=== PATIENT | female | born 1960 | race Caucasian/White ===

== ENCOUNTER 2020-05-29 09:21 | Inpatient (IN) | payer BC ==
[~2020-05-29] VITALS: Ht 170.2 cm; Wt 128.3 kg
[~2020-05-29 09:21] MED LIST: [UNRECOGNIZED DRUG - OTHER]; ibuprofen; pravastatin
[2020-05-29] MEDS ORDERED: DexAMETHasone SOD PHOS 10MG/1ML VIAL INJ IV ONE (09:45)
[2020-05-29] MEDS ORDERED: ONDANSETRON HCL 4 MG/2 ML VIAL IV ONE (10:00)
[2020-05-29 10:32] LABS: Basophils # (auto) 0 10 ^3/uL (0-0.2); Basophils % (auto) 0.3 % (0.0-2.0); Eosinophils # (auto) 0 10 ^3/uL (0-0.8); Hematocrit 39.1 % (36.0-46.0); Hemoglobin 13.4 g/dL (12.2-16.2); Lymphocytes # (auto) 0.5 10 ^3/uL (0.4-5.4); Lymphocytes % (auto) 17.3 % (10.0-50.0); Mean Corpuscular Hemoglobin 31.5 pg (28.0-32.0); Mean Corpuscular Hgb Conc. 34.3 g/dL (32.0-36.0); Mean Corpuscular Volume 91.7 fL (80.0-100.0); Monocytes # (auto) 0.2 10 ^3/uL (0-1.3); Monocytes % (auto) 8.2 % (0.0-12.0); Neutrophils # (auto) 2.1 10 ^3/uL (1.6-8.6); Neutrophils % (auto) 74.2 % (37.0-80.0); Nucleated Red Blood Cells % 0.1 %; Platelet Count (auto) 161 10^3/uL (140-450); Red Blood Cells 4.26 10^6/uL (4.0-5.20); Red Cell Distribution Width 14.3 % (11.8-14.3); White Blood Cell 2.9 10^3/uL (4.4-10.8)
[2020-05-29 10:48] LABS: INR 3.95 (0.9-1.15); Partial Thromboplastin Time 54.8 sec (23.0-31.2)
[2020-05-29 10:58] LABS: Albumin 3.2 g/dL (3.4-5.0); Anion Gap 8 (5-15); Blood Urea Nitrogen 7 mg/dL (7-18); Calcium 8.1 mg/dL (8.5-10.1); Carbon Dioxide 23 mmol/L (21-32); Chloride 106 mmol/L (98-107); Glucose 106 mg/dL (74-106); Potassium 3.4 mmol/L (3.5-5.1); Sodium 137 mmol/L (136-145)
[2020-05-29 11:06] LABS: Alanine Aminotransferase 22 U/L (13-56); Alkaline Phosphatase 69 U/L (45-117); Aspartate Aminotransferase 31 U/L (15-37); BUN/Creatinine Ratio 8.1; Bilirubin, Total 0.2 mg/dL (0.2-1.0); GFR African American 87 mL/min; GFR Non-African American 72 mL/min; Total Protein 6.8 g/dL (6.4-8.2)
[2020-05-29] MEDS ORDERED: POTASSIUM CHL 20 Meq TABLET PO ONE (13:45)
[2020-05-29] MEDS ORDERED: MORPHINE SULF INJ 2 MG/ML SYRINGE 1ML IV PRN ×2 (14:00→15:15)
[2020-05-29] MEDS ORDERED: NITROGLYCERIN 0.4 MG SL TAB SL PRN ×2 (14:00→15:15)
[2020-05-29] MEDS ORDERED: PANT40TA2 PO (14:59)
[2020-05-29] MEDS ORDERED: PRAV20TA3 PO (14:59)
[2020-05-29] MEDS ORDERED: BUPR300T28 PO (14:59)
[2020-05-29] MEDS ORDERED: WARF3TAB22 PO (14:59)
[2020-05-29] MEDS ORDERED: MET25T PO (14:59)
[2020-05-29] MEDS ORDERED: REMDESIVIR PER PHARMACY 0 ML IV SCH (15:15)
[2020-05-29] MEDS ORDERED: DOCUSATE SOD 100 MG CAP PO PRN (15:15)
[2020-05-29] MEDS ORDERED: ACETAMINOPHEN 500 MG TAB PO PRN (15:15)
[2020-05-29] MEDS ORDERED: ONDANSETRON HCL 4 MG/2 ML VIAL IV PRN (15:15)
[2020-05-29] MEDS ORDERED: ALUM & MAG HYDROX-SIMETH LIQ(MAALOX) 30 ML PO PRN (15:15)
[2020-05-29] MEDS: CHOLECALCIFEROL (VITD3) 2,000 UNIT CAP PO SCH (16:31)
[2020-05-29] MEDS: BUDESONIDE (INHALATION) 180 MCG IH IN SCH (20:06)
[2020-05-29 20:51] LABS: Basophils # (auto) 0 10 ^3/uL (0-0.2); Basophils % (auto) 0.2 % (0.0-2.0); Eosinophils # (auto) 0 10 ^3/uL (0-0.8); Hematocrit 38.8 % (36.0-46.0); Hemoglobin 13.3 g/dL (12.2-16.2); Lymphocytes # (auto) 0.5 10 ^3/uL (0.4-5.4); Lymphocytes % (auto) 24.8 % (10.0-50.0); Mean Corpuscular Hemoglobin 31.5 pg (28.0-32.0); Mean Corpuscular Hgb Conc. 34.3 g/dL (32.0-36.0); Mean Corpuscular Volume 91.7 fL (80.0-100.0); Monocytes # (auto) 0.2 10 ^3/uL (0-1.3); Monocytes % (auto) 7.8 % (0.0-12.0); Neutrophils # (auto) 1.4 10 ^3/uL (1.6-8.6); Neutrophils % (auto) 67.2 % (37.0-80.0); Platelet Count (auto) 170 10^3/uL (140-450); Red Blood Cells 4.24 10^6/uL (4.0-5.20); Red Cell Distribution Width 14.2 % (11.8-14.3); White Blood Cell 2.1 10^3/uL (4.4-10.8)
[2020-05-29 22:03] LABS: Albumin 3.1 g/dL (3.4-5.0); Calcium 8.1 mg/dL (8.5-10.1); Magnesium 1.9 mg/dL (1.6-2.6); Potassium 3.4 mmol/L (3.5-5.1)
[2020-05-29 22:11] LABS: BUN/Creatinine Ratio 12.6; Bilirubin, Total 0.2 mg/dL (0.2-1.0); CRP High Sensitivity 4.36 mg/dL (< 0.3); Cholesterol 116 mg/dL (< 200); Total Protein 6.8 g/dL (6.4-8.2)
[2020-05-29 22:15] LABS: HDL Cholesterol 41 mg/dL (40-59); LDL Cholesterol 58 mg/dL (< 100); Triglycerides 88 mg/dL (< 150)
[2020-05-30] MEDS: SODIUM CHLORIDE 0.9% 1,000 ML IV SCH ×2 (05:47→11:04)
[2020-05-30] MEDS: ZINC SULFATE 220mg CAP or TAB PO SCH ×2 (05:48→11:05)
[2020-05-30] MEDS: DOXYCYCLINE 100MG/250ML 250 ML IV SCH ×3 (05:48→21:51)
[2020-05-30] MEDS: ASCORBIC ACID 1,000 MG TAB PO SCH ×2 (05:48→11:05)
[2020-05-30] MEDS ORDERED: SUCRALFATE 1 GM/10 ML ORAL SUSP PO ONE (06:30)
[2020-05-30] MEDS ORDERED: METOPROLOL SUCCINATE XL 50 MG TAB PO ONE (06:30)
[2020-05-30] MEDS ORDERED: POTASSIUM CHL 20 Meq TABLET PO ONE (06:30)
[2020-05-30] MEDS ORDERED: PANTOPRAZOLE 40 MG/10 ML VIAL INJ IV ONE (06:30)
[2020-05-30 06:54] LABS: Basophils # (auto) 0 10 ^3/uL (0-0.2); Basophils % (auto) 0.2 % (0.0-2.0); Eosinophils # (auto) 0 10 ^3/uL (0-0.8); Hematocrit 40.9 % (36.0-46.0); Hemoglobin 13.9 g/dL (12.2-16.2); Lymphocytes # (auto) 0.9 10 ^3/uL (0.4-5.4); Lymphocytes % (auto) 13.9 % (10.0-50.0); Mean Corpuscular Hgb Conc. 33.9 g/dL (32.0-36.0); Mean Corpuscular Volume 91.5 fL (80.0-100.0); Monocytes # (auto) 0.4 10 ^3/uL (0-1.3); Monocytes % (auto) 6.1 % (0.0-12.0); Neutrophils # (auto) 5.1 10 ^3/uL (1.6-8.6); Neutrophils % (auto) 79.8 % (37.0-80.0); Nucleated Red Blood Cells % 0.2 %; Platelet Count (auto) 181 10^3/uL (140-450); Red Blood Cells 4.47 10^6/uL (4.0-5.20); Red Cell Distribution Width 14.4 % (11.8-14.3); White Blood Cell 6.4 10^3/uL (4.4-10.8)
[2020-05-30 08:40] LABS: Albumin 3.2 g/dL (3.4-5.0); BUN/Creatinine Ratio 16.5; Bilirubin, Total 0.3 mg/dL (0.2-1.0); Calcium 8.6 mg/dL (8.5-10.1); Potassium 3.7 mmol/L (3.5-5.1); Total Protein 6.7 g/dL (6.4-8.2)
[2020-05-30 09:39] LABS: INR 5.76 (0.9-1.15)
[2020-05-30] MEDS: buPROPion HCL 75 MG TAB PO SCH ×2 (09:42→19:44)
[2020-05-30] MEDS: PANTOPRAZOLE 40 MG/10 ML VIAL INJ IV SCH (10:00)
[2020-05-30] MEDS: METOPROLOL SUCCINATE XL 50 MG TAB PO SCH (10:00)
[2020-05-30] MEDS: POTASSIUM CHL 20 Meq TABLET PO SCH (10:00)
[2020-05-30] MEDS: SUCRALFATE 1 GM/10 ML ORAL SUSP PO SCH ×4 (10:00→21:51)
[2020-05-30] MEDS: DexAMETHasone SOD PHOS 10MG/1ML VIAL INJ IV SCH (11:05)
[2020-05-30] MEDS: CHOLECALCIFEROL (VITD3) 2,000 UNIT CAP PO SCH (11:06)
[2020-05-30] MEDS ORDERED: REMDESIVIR 200 MG in NS 210ml LOADING DOSE ADULT IV ONE (17:00)
[2020-05-30 18:00] VITALS: BP 117/74
[2020-05-30 18:30] VITALS: BP 116/56
[2020-05-30 18:42] LABS: Urine Bacteria NONE SEEN /hpf (None Seen); Urine Blood Negative /uL (Negative); Urine Hyaline Cast FEW /lpf (0 - 2); Urine Specific Gravity 1.009 (1.001-1.035); Urine WBC 1 /hpf (0 - 5)
[2020-05-30 18:52] LABS: Amphetamine Screen, Urine NEGATIVE (NEGATIVE); Barbiturate Scree,Urine NEGATIVE (NEGATIVE); Benzodiazephine Screen, Urine NEGATIVE (NEGATIVE); Cannabinoid Screen, Urine NEGATIVE (NEGATIVE); Cocaine Screen, Urine NEGATIVE (NEGATIVE); Opiate Scree,Urine NEGATIVE (NEGATIVE); Phencyclidine Screen, Urine NEGATIVE (NEGATIVE)
[2020-05-30] MEDS: BUDESONIDE (INHALATION) 180 MCG IH IN SCH (20:21)
[2020-05-30] MEDS: ALBUTEROL SULF HFA 90MCG INH 200DOSE IN PRN (20:21)
[2020-05-30] MEDS: ATORVASTATIN 20 MG TAB PO SCH (21:51)
[2020-05-30] MEDS ORDERED: DOXY-286 PO (22:18)
[2020-05-30] MEDS ORDERED: SERT-377 PO (22:18)
[2020-05-30] MEDS: MORPHINE SULF INJ 2 MG/ML SYRINGE 1ML IV PRN (23:05)
[2020-05-31] MEDS: SODIUM CHLORIDE 0.9% 1,000 ML IV SCH (00:44)
[2020-05-31] MEDS: SUCRALFATE 1 GM/10 ML ORAL SUSP PO SCH ×4 (06:23→21:30)
[2020-05-31] MEDS: MORPHINE SULF INJ 2 MG/ML SYRINGE 1ML IV PRN (06:24)
[2020-05-31] MEDS: buPROPion HCL 75 MG TAB PO SCH ×2 (06:37→18:21)
[2020-05-31 07:49] VITALS: BP 123/73
[2020-05-31] MEDS: DOXYCYCLINE 100MG/250ML 250 ML IV SCH ×2 (08:55→21:30)
[2020-05-31] MEDS: PANTOPRAZOLE 40 MG/10 ML VIAL INJ IV SCH (08:55)
[2020-05-31] MEDS: DexAMETHasone SOD PHOS 10MG/1ML VIAL INJ IV SCH (08:55)
[2020-05-31] MEDS: ZINC SULFATE 220mg CAP or TAB PO SCH (08:56)
[2020-05-31] MEDS: ASCORBIC ACID 1,000 MG TAB PO SCH (08:56)
[2020-05-31] MEDS: METOPROLOL SUCCINATE XL 50 MG TAB PO SCH (08:56)
[2020-05-31] MEDS: POTASSIUM CHL 20 Meq TABLET PO SCH (08:56)
[2020-05-31] MEDS: CHOLECALCIFEROL (VITD3) 2,000 UNIT CAP PO SCH (08:57)
[2020-05-31] MEDS: BUDESONIDE (INHALATION) 180 MCG IH IN SCH ×2 (10:00→21:07)
[2020-05-31 11:52] LABS: INR > 8.0 (0.9-1.15)
[2020-05-31] MEDS ORDERED: FUROSEMIDE 20 MG/2 ML VIAL IV ONE (13:45)
[2020-05-31] MEDS: REMDESIVIR 100 MG in SODIUM CHL 0.9% 250 ML IV SCH (15:15)
[2020-05-31 16:00] VITALS: BP 125/69
[2020-05-31] MEDS: ALBUTEROL SULF HFA 90MCG INH 200DOSE IN PRN (21:07)
[2020-05-31] MEDS: ATORVASTATIN 20 MG TAB PO SCH (21:31)
[2020-05-31] MEDS: HYDROcodone-ACET 5/325MG TAB PO PRN (21:40)
[2020-06-01] VITALS: BP 108/62
[2020-06-01] MEDS: buPROPion HCL 75 MG TAB PO SCH ×2 (06:05→18:31)
[2020-06-01] MEDS: SUCRALFATE 1 GM/10 ML ORAL SUSP PO SCH ×4 (06:05→22:04)
[2020-06-01] MEDS: HYDROcodone-ACET 5/325MG TAB PO PRN ×2 (06:13→18:43)
[2020-06-01 08:00] VITALS: BP 107/53
[2020-06-01] MEDS: DexAMETHasone SOD PHOS 10MG/1ML VIAL INJ IV SCH (09:29)
[2020-06-01] MEDS: FUROSEMIDE 20 MG/2 ML VIAL IV SCH (09:30)
[2020-06-01] MEDS: PANTOPRAZOLE 40 MG/10 ML VIAL INJ IV SCH (09:30)
[2020-06-01] MEDS: DOXYCYCLINE 100MG/250ML 250 ML IV SCH ×2 (09:30→22:04)
[2020-06-01] MEDS: ZINC SULFATE 220mg CAP or TAB PO SCH (09:31)
[2020-06-01] MEDS: ASCORBIC ACID 1,000 MG TAB PO SCH (09:31)
[2020-06-01] MEDS: METOPROLOL SUCCINATE XL 50 MG TAB PO SCH (09:31)
[2020-06-01] MEDS: POTASSIUM CHL 20 Meq TABLET PO SCH (09:31)
[2020-06-01] MEDS: CHOLECALCIFEROL (VITD3) 2,000 UNIT CAP PO SCH (09:32)
[2020-06-01] MEDS: BUDESONIDE (INHALATION) 180 MCG IH IN SCH ×2 (10:10→21:30)
[2020-06-01] MEDS: ALBUTEROL SULF HFA 90MCG INH 200DOSE IN PRN ×2 (10:10→21:30)
[2020-06-01 11:55] LABS: Basophils # (auto) 0 10 ^3/uL (0-0.2); Basophils % (auto) 0.2 % (0.0-2.0); Eosinophils # (auto) 0 10 ^3/uL (0-0.8); Hematocrit 39.1 % (36.0-46.0); Hemoglobin 13.2 g/dL (12.2-16.2); Lymphocytes # (auto) 0.5 10 ^3/uL (0.4-5.4); Lymphocytes % (auto) 11.3 % (10.0-50.0); Mean Corpuscular Hgb Conc. 33.8 g/dL (32.0-36.0); Mean Corpuscular Volume 91.9 fL (80.0-100.0); Monocytes # (auto) 0.4 10 ^3/uL (0-1.3); Monocytes % (auto) 7.8 % (0.0-12.0); Neutrophils # (auto) 3.7 10 ^3/uL (1.6-8.6); Neutrophils % (auto) 80.7 % (37.0-80.0); Platelet Count (auto) 196 10^3/uL (140-450); Red Blood Cells 4.26 10^6/uL (4.0-5.20); Red Cell Distribution Width 14.4 % (11.8-14.3); White Blood Cell 4.5 10^3/uL (4.4-10.8)
[2020-06-01 12:05] LABS: Potassium 3.2 mmol/L (3.5-5.1)
[2020-06-01 12:15] LABS: BUN/Creatinine Ratio 16.1; Bilirubin, Total 0.3 mg/dL (0.2-1.0); CRP High Sensitivity 4.58 mg/dL (< 0.3); Total Protein 6.5 g/dL (6.4-8.2)
[2020-06-01 12:48] LABS: INR 5.84 (0.9-1.15)
[2020-06-01] MEDS ORDERED: POTASSIUM CHL 20 Meq TABLET PO ONE (13:15)
[2020-06-01] MEDS: REMDESIVIR 100 MG in SODIUM CHL 0.9% 250 ML IV SCH (15:00)
[2020-06-01 16:00] VITALS: BP 114/71
[2020-06-01] MEDS: ATORVASTATIN 20 MG TAB PO SCH (22:04)
[2020-06-01] MEDS: LORazepam 0.5 MG TAB PO PRN (22:05)
[2020-06-02] VITALS: BP 149/75
[2020-06-02] MEDS: buPROPion HCL 75 MG TAB PO SCH ×2 (06:30→19:39)
[2020-06-02] MEDS: SUCRALFATE 1 GM/10 ML ORAL SUSP PO SCH ×4 (06:30→22:01)
[2020-06-02 07:32] LABS: Basophils # (auto) 0 10 ^3/uL (0-0.2); Basophils % (auto) 0.4 % (0.0-2.0); Eosinophils # (auto) 0 10 ^3/uL (0-0.8); Eosinophils % (auto) 0.1 % (0.0-7.0); Hematocrit 37.4 % (36.0-46.0); Hemoglobin 12.7 g/dL (12.2-16.2); Lymphocytes % (auto) 29.5 % (10.0-50.0); Mean Corpuscular Hemoglobin 30.9 pg (28.0-32.0); Mean Corpuscular Hgb Conc. 33.9 g/dL (32.0-36.0); Mean Corpuscular Volume 91.4 fL (80.0-100.0); Monocytes # (auto) 0.4 10 ^3/uL (0-1.3); Monocytes % (auto) 10.9 % (0.0-12.0); Neutrophils % (auto) 59.1 % (37.0-80.0); Nucleated Red Blood Cells % 0.1 %; Platelet Count (auto) 193 10^3/uL (140-450); Red Blood Cells 4.09 10^6/uL (4.0-5.20); White Blood Cell 3.3 10^3/uL (4.4-10.8)
[2020-06-02 07:53] LABS: Albumin 3.1 g/dL (3.4-5.0); BUN/Creatinine Ratio 19.4; Calcium 8.2 mg/dL (8.5-10.1); Potassium 3.1 mmol/L (3.5-5.1)
[2020-06-02 08:00] VITALS: BP 123/63
[2020-06-02 08:04] LABS: Partial Thromboplastin Time 59.1 sec (23.0-31.2)
[2020-06-02 08:05] LABS: Bilirubin, Total 0.4 mg/dL (0.2-1.0); Total Protein 6.1 g/dL (6.4-8.2)
[2020-06-02 08:12] LABS: INR 5.12 (0.9-1.15)
[2020-06-02] MEDS ORDERED: POTASSIUM CHL 20 Meq TABLET PO ONE (09:00)
[2020-06-02] MEDS: DexAMETHasone SOD PHOS 10MG/1ML VIAL INJ IV SCH (09:49)
[2020-06-02] MEDS: FUROSEMIDE 20 MG/2 ML VIAL IV SCH (09:49)
[2020-06-02] MEDS: MAGNESIUM OXIDE 400 MG TAB PO SCH (09:50)
[2020-06-02] MEDS: POTASSIUM CHL 20 Meq TABLET PO SCH (09:50)
[2020-06-02] MEDS: DOXYCYCLINE 100MG/250ML 250 ML IV SCH ×2 (09:50→22:01)
[2020-06-02] MEDS: ZINC SULFATE 220mg CAP or TAB PO SCH (09:50)
[2020-06-02] MEDS: CHOLECALCIFEROL (VITD3) 2,000 UNIT CAP PO SCH (09:51)
[2020-06-02] MEDS: ASCORBIC ACID 1,000 MG TAB PO SCH (09:51)
[2020-06-02] MEDS: METOPROLOL SUCCINATE XL 50 MG TAB PO SCH (09:51)
[2020-06-02] MEDS: PANTOPRAZOLE 40 MG/10 ML VIAL INJ IV SCH (10:00)
[2020-06-02] MEDS: BUDESONIDE (INHALATION) 180 MCG IH IN SCH ×2 (10:00→21:05)
[2020-06-02] MEDS: ALBUTEROL SULF HFA 90MCG INH 200DOSE IN PRN ×2 (10:55→21:05)
[2020-06-02] MEDS: guaiFENesin-DM 100/10mg/5ml SYR PO PRN ×2 (13:22→22:50)
[2020-06-02] MEDS: REMDESIVIR 100 MG in SODIUM CHL 0.9% 250 ML IV SCH (15:51)
[2020-06-02] MEDS: HYDROcodone-ACET 5/325MG TAB PO PRN ×2 (15:55→22:02)
[2020-06-02 16:00] VITALS: BP 109/65
[2020-06-02 20:00] VITALS: BP 101/47
[2020-06-02] MEDS: ATORVASTATIN 20 MG TAB PO SCH (22:01)
[2020-06-02] MEDS: LORazepam 0.5 MG TAB PO PRN (22:02)
[2020-06-03] VITALS: BP 95/61
[2020-06-03] MEDS: buPROPion HCL 75 MG TAB PO SCH ×2 (06:38→19:33)
[2020-06-03] MEDS: SUCRALFATE 1 GM/10 ML ORAL SUSP PO SCH ×4 (06:38→22:20)
[2020-06-03] MEDS: guaiFENesin-DM 100/10mg/5ml SYR PO PRN ×2 (06:45→22:20)
[2020-06-03 07:23] LABS: INR 5.78 (0.9-1.15)
[2020-06-03 08:00] VITALS: BP 122/59
[2020-06-03] MEDS: PANTOPRAZOLE 40 MG/10 ML VIAL INJ IV SCH (10:00)
[2020-06-03] MEDS: BUDESONIDE (INHALATION) 180 MCG IH IN SCH ×2 (10:00→20:17)
[2020-06-03] MEDS: DexAMETHasone SOD PHOS 10MG/1ML VIAL INJ IV SCH (10:04)
[2020-06-03] MEDS: DOXYCYCLINE 100MG/250ML 250 ML IV SCH (10:05)
[2020-06-03] MEDS: FUROSEMIDE 20 MG/2 ML VIAL IV SCH (10:05)
[2020-06-03] MEDS: MAGNESIUM OXIDE 400 MG TAB PO SCH (10:06)
[2020-06-03] MEDS: POTASSIUM CHL 20 Meq TABLET PO SCH (10:06)
[2020-06-03] MEDS: ZINC SULFATE 220mg CAP or TAB PO SCH (10:06)
[2020-06-03] MEDS: METOPROLOL SUCCINATE XL 50 MG TAB PO SCH (10:07)
[2020-06-03] MEDS: ASCORBIC ACID 1,000 MG TAB PO SCH (10:07)
[2020-06-03] MEDS: CHOLECALCIFEROL (VITD3) 2,000 UNIT CAP PO SCH (10:07)
[2020-06-03] MEDS: HYDROcodone-ACET 5/325MG TAB PO PRN ×2 (11:40→18:55)
[2020-06-03 15:57] VITALS: BP 107/63
[2020-06-03] MEDS: REMDESIVIR 100 MG in SODIUM CHL 0.9% 250 ML IV SCH (18:44)
[2020-06-03 20:00] VITALS: BP 112/61
[2020-06-03] MEDS: ALBUTEROL SULF HFA 90MCG INH 200DOSE IN PRN (20:17)
[2020-06-03] MEDS: ATORVASTATIN 20 MG TAB PO SCH (22:20)
[2020-06-03] MEDS: LORazepam 0.5 MG TAB PO PRN (22:20)
[2020-06-04] VITALS: BP 105/66
[2020-06-04] MEDS: buPROPion HCL 75 MG TAB PO SCH ×2 (06:47→18:23)
[2020-06-04] MEDS: SUCRALFATE 1 GM/10 ML ORAL SUSP PO SCH ×4 (06:47→21:46)
[2020-06-04] MEDS: ALBUTEROL SULF HFA 90MCG INH 200DOSE IN PRN ×2 (06:54→20:27)
[2020-06-04] MEDS: BUDESONIDE (INHALATION) 180 MCG IH IN SCH ×2 (06:54→19:06)
[2020-06-04 07:53] LABS: Basophils # (auto) 0 10 ^3/uL (0-0.2); Basophils % (auto) 0.2 % (0.0-2.0); Eosinophils # (auto) 0 10 ^3/uL (0-0.8); Eosinophils % (auto) 0.1 % (0.0-7.0); Hematocrit 39.9 % (36.0-46.0); Hemoglobin 13.3 g/dL (12.2-16.2); Lymphocytes # (auto) 1.1 10 ^3/uL (0.4-5.4); Lymphocytes % (auto) 21.5 % (10.0-50.0); Mean Corpuscular Hemoglobin 30.3 pg (28.0-32.0); Mean Corpuscular Hgb Conc. 33.3 g/dL (32.0-36.0); Monocytes # (auto) 0.6 10 ^3/uL (0-1.3); Monocytes % (auto) 11.1 % (0.0-12.0); Neutrophils # (auto) 3.4 10 ^3/uL (1.6-8.6); Neutrophils % (auto) 67.1 % (37.0-80.0); Nucleated Red Blood Cells % 0.1 %; Platelet Count (auto) 255 10^3/uL (140-450); Red Blood Cells 4.39 10^6/uL (4.0-5.20); Red Cell Distribution Width 14.3 % (11.8-14.3); White Blood Cell 5.1 10^3/uL (4.4-10.8)
[2020-06-04 08:00] VITALS: BP 142/70
[2020-06-04 08:09] LABS: Potassium 3.3 mmol/L (3.5-5.1)
[2020-06-04] MEDS: ASCORBIC ACID 1,000 MG TAB PO SCH (08:42)
[2020-06-04] MEDS: MAGNESIUM OXIDE 400 MG TAB PO SCH (08:42)
[2020-06-04] MEDS: ZINC SULFATE 220mg CAP or TAB PO SCH (08:43)
[2020-06-04] MEDS: DexAMETHasone SOD PHOS 10MG/1ML VIAL INJ IV SCH (08:44)
[2020-06-04] MEDS: FUROSEMIDE 20 MG/2 ML VIAL IV SCH (08:44)
[2020-06-04] MEDS: METOPROLOL SUCCINATE XL 50 MG TAB PO SCH (08:44)
[2020-06-04 08:50] LABS: BUN/Creatinine Ratio 16.4; Calcium 8.6 mg/dL (8.5-10.1)
[2020-06-04 08:59] LABS: CRP High Sensitivity 2.91 mg/dL (< 0.3)
[2020-06-04 09:02] LABS: INR 4.7 (0.9-1.15)
[2020-06-04] MEDS: PANTOPRAZOLE 40 MG/10 ML VIAL INJ IV SCH (10:00)
[2020-06-04] MEDS: CHOLECALCIFEROL (VITD3) 2,000 UNIT CAP PO SCH (10:00)
[2020-06-04] MEDS ORDERED: POTASSIUM CHL 20 Meq TABLET PO ONE (14:30)
[2020-06-04] MEDS: guaiFENesin-DM 100/10mg/5ml SYR PO PRN ×2 (15:13→21:47)
[2020-06-04] MEDS: HYDROcodone-ACET 5/325MG TAB PO PRN (15:14)
[2020-06-04 16:00] VITALS: BP_SYST 100; BP_SYST 106; BP_SYST 143; BP_DIAS 60; BP_DIAS 65; BP_DIAS 72
[2020-06-04] MEDS: ATORVASTATIN 20 MG TAB PO SCH (21:46)
[2020-06-04] MEDS: LORazepam 0.5 MG TAB PO PRN (21:47)
[2020-06-05] VITALS: BP 106/53
[2020-06-05] MEDS: ALBUTEROL SULF HFA 90MCG INH 200DOSE IN PRN (06:40)
[2020-06-05] MEDS: BUDESONIDE (INHALATION) 180 MCG IH IN SCH (06:40)
[2020-06-05] MEDS: buPROPion HCL 75 MG TAB PO SCH (06:43)
[2020-06-05] MEDS: SUCRALFATE 1 GM/10 ML ORAL SUSP PO SCH ×2 (06:43→10:09)
[2020-06-05] MEDS: HYDROcodone-ACET 5/325MG TAB PO PRN (06:44)
[2020-06-05 08:00] VITALS: BP 119/70
[2020-06-05 08:20] LABS: Basophils # (auto) 0 10 ^3/uL (0-0.2); Basophils % (auto) 0.3 % (0.0-2.0); Eosinophils # (auto) 0 10 ^3/uL (0-0.8); Eosinophils % (auto) 0.5 % (0.0-7.0); Hematocrit 38.9 % (36.0-46.0); Hemoglobin 13.4 g/dL (12.2-16.2); Lymphocytes # (auto) 1.1 10 ^3/uL (0.4-5.4); Lymphocytes % (auto) 17.2 % (10.0-50.0); Mean Corpuscular Hemoglobin 30.8 pg (28.0-32.0); Mean Corpuscular Hgb Conc. 34.3 g/dL (32.0-36.0); Mean Corpuscular Volume 89.8 fL (80.0-100.0); Monocytes # (auto) 0.7 10 ^3/uL (0-1.3); Monocytes % (auto) 11.3 % (0.0-12.0); Neutrophils # (auto) 4.4 10 ^3/uL (1.6-8.6); Neutrophils % (auto) 70.7 % (37.0-80.0); Platelet Count (auto) 262 10^3/uL (140-450); Red Blood Cells 4.33 10^6/uL (4.0-5.20); Red Cell Distribution Width 13.9 % (11.8-14.3); White Blood Cell 6.2 10^3/uL (4.4-10.8)
[2020-06-05 08:34] LABS: INR 3.04 (0.9-1.15)
[2020-06-05 08:37] LABS: Albumin 2.8 g/dL (3.4-5.0)
[2020-06-05] MEDS: PANTOPRAZOLE 40 MG/10 ML VIAL INJ IV SCH (10:00)
[2020-06-05] MEDS: ASCORBIC ACID 1,000 MG TAB PO SCH (10:09)
[2020-06-05] MEDS: METOPROLOL SUCCINATE XL 50 MG TAB PO SCH (10:10)
[2020-06-05] MEDS: CHOLECALCIFEROL (VITD3) 2,000 UNIT CAP PO SCH (10:10)
[2020-06-05] MEDS: ZINC SULFATE 220mg CAP or TAB PO SCH (10:10)
[2020-06-05] MEDS: FUROSEMIDE 20 MG/2 ML VIAL IV SCH (10:11)
[2020-06-05] MEDS: DexAMETHasone SOD PHOS 10MG/1ML VIAL INJ IV SCH (10:11)
[2020-06-05] MEDS: MAGNESIUM OXIDE 400 MG TAB PO SCH (10:11)
[2020-06-05 15:42] VITALS: BP 96/56
[2020-06-05 18:17] VITALS: BP 119/57
== END 2020-06-05 19:59 | disposition home health service (06) | DRG 177 ==
LOC: EDSEX 09:21 → ER 09:21 → EDBD 09:21 → TELE 09:22 → TELE-EAST 05-30 17:02
PROVIDERS: ADMIT Hospitalist; ATTEND Internal Medicine
PROC: XW033E5 Introduction of Remdesivir Anti-infective into Peripheral Vein, Percutaneous Approach, New Technology Group 5 (ICD-10-PCS; principal; 2020-05-30)
DX: U07.1 COVID-19 (principal); J12.82 Pneumonia due to coronavirus disease 2019; J96.01 Acute respiratory failure with hypoxia; D68.51 Activated protein C resistance; Z68.41 Body mass index [BMI] 40.0-44.9, adult; E66.01 Morbid (severe) obesity due to excess calories; E78.5 Hyperlipidemia, unspecified; F32.9 Major depressive disorder, single episode, unspecified; I25.10 Atherosclerotic heart disease of native coronary artery without angina pectoris; I25.2 Old myocardial infarction; I25.5 Ischemic cardiomyopathy; I50.9 Heart failure, unspecified; K21.9 Gastro-esophageal reflux disease without esophagitis; K29.70 Gastritis, unspecified, without bleeding; Z79.01 Long term (current) use of anticoagulants; Z86.73 Personal history of transient ischemic attack (TIA), and cerebral infarction without residual deficits; Z90.710 Acquired absence of both cervix and uterus
CPT/HCPCS: 36415; 36600; 71045; 80048; 80053; 80061; 80307; 81001; 82040; 82306; 82565; 82728; 82805; 83036; 83605; 83615; 83735; 83880; 84439; 84443; 84484; 85025; 85379; 85610; 85730; 86141; 87040; 87086; 87426; 87804; 94640; 96374; 96375; 97163; C9113; G0378; J1100; J2405; J3490

== ENCOUNTER 2020-07-03 16:52 | Inpatient (IN) | payer BC ==
[~2020-07-03] VITALS: Ht 170.2 cm; Wt 125.6 kg
[~2020-07-03 16:52] MED LIST changes: +BUPR300T28 PO; +DOXY-286 PO; +MET25T PO; +PANT40TA2 PO; +PRAV20TA3 PO; +SERT-377 PO; +WARF3TAB22 PO; -[UNRECOGNIZED DRUG - OTHER]; -ibuprofen; -pravastatin
[2020-07-03 18:36] LABS: Basophils # (auto) 0.1 10 ^3/uL (0-0.2); Basophils % (auto) 0.9 % (0.0-2.0); Eosinophils # (auto) 0.4 10 ^3/uL (0-0.8); Eosinophils % (auto) 3.7 % (0.0-7.0); Hematocrit 41.3 % (36.0-46.0); Lymphocytes # (auto) 2.6 10 ^3/uL (0.4-5.4); Lymphocytes % (auto) 24.7 % (10.0-50.0); Mean Corpuscular Hemoglobin 31.7 pg (28.0-32.0); Mean Corpuscular Volume 93.3 fL (80.0-100.0); Monocytes # (auto) 0.8 10 ^3/uL (0-1.3); Monocytes % (auto) 7.6 % (0.0-12.0); Neutrophils # (auto) 6.5 10 ^3/uL (1.6-8.6); Neutrophils % (auto) 63.1 % (37.0-80.0); Platelet Count (auto) 256 10^3/uL (140-450); Red Blood Cells 4.43 10^6/uL (4.0-5.20); Red Cell Distribution Width 15.5 % (11.8-14.3); White Blood Cell 10.3 10^3/uL (4.4-10.8)
[2020-07-03 18:56] LABS: Alanine Aminotransferase 26 U/L (13-56); Albumin 3.4 g/dL (3.4-5.0); Anion Gap 9 (5-15); Aspartate Aminotransferase 19 U/L (15-37); BUN/Creatinine Ratio 14.3; Blood Urea Nitrogen 12 mg/dL (7-18); Calcium 8.6 mg/dL (8.5-10.1); Carbon Dioxide 23 mmol/L (21-32); Chloride 105 mmol/L (98-107); GFR African American 89 mL/min; GFR Non-African American 74 mL/min; Glucose 99 mg/dL (74-106); Magnesium 2.1 mg/dL (1.6-2.6); Potassium 3.9 mmol/L (3.5-5.1); Sodium 137 mmol/L (136-145)
[2020-07-03 18:58] LABS: INR 2.05 (0.9-1.15); Partial Thromboplastin Time 34.7 sec (23.0-31.2)
[2020-07-03 18:58] LABS: Lactic Acid w/Reflex 2.1 mmol/L (0.4-2.0)
[2020-07-03 19:01] LABS: Alkaline Phosphatase 71 U/L (45-117); Bilirubin, Total 0.3 mg/dL (0.2-1.0); Total Protein 6.8 g/dL (6.4-8.2)
[2020-07-03] MEDS ORDERED: SODIUM CHLORIDE 0.9% 1,000 ML IV ONE (19:45)
[2020-07-03] MEDS ORDERED: DexAMETHasone SOD PHOS 10MG/1ML VIAL INJ IV ONE (19:45)
[2020-07-03] MEDS ORDERED: DOXYCYCLINE 100MG/250ML 250 ML IV ONE (19:45)
[2020-07-03] MEDS ORDERED: ALBUTEROL SULF HFA 90MCG INH 200DOSE IN PRN (22:30)
[2020-07-03] MEDS ORDERED: ONDANSETRON HCL 4 MG/2 ML VIAL IV PRN (22:30)
[2020-07-03] MEDS ORDERED: TEMAZEPAM 15 MG CAP PO PRN (22:30)
[2020-07-03] MEDS ORDERED: NITROGLYCERIN 0.4 MG SL TAB SL PRN (22:30)
[2020-07-03] MEDS ORDERED: MORPHINE SULF INJ 2 MG/ML SYRINGE 1ML IV PRN (22:30)
[2020-07-03 22:36] LABS: Urine Bacteria NONE SEEN /hpf (None Seen); Urine Blood Negative /uL (Negative); Urine Specific Gravity 1.009 (1.001-1.035); Urine WBC 10 /hpf (0 - 5)
[2020-07-03 23:26] LABS: Magnesium 2.2 mg/dL (1.6-2.6)
[2020-07-03 23:35] LABS: CRP High Sensitivity 1.85 mg/dL (< 0.3)
[2020-07-04] MEDS: ACETAMINOPHEN 325 MG TAB PO PRN ×3 (04:54→18:45)
[2020-07-04 05:00] VITALS: BP 114/63
[2020-07-04] MEDS: buPROPion HCL 75 MG TAB PO SCH ×2 (06:23→18:37)
[2020-07-04 08:00] VITALS: BP 138/78
[2020-07-04 09:07] LABS: Basophils # (auto) 0 10 ^3/uL (0-0.2); Basophils % (auto) 0.2 % (0.0-2.0); Eosinophils # (auto) 0 10 ^3/uL (0-0.8); Hematocrit 39.4 % (36.0-46.0); Hemoglobin 13.4 g/dL (12.2-16.2); Lymphocytes # (auto) 1.2 10 ^3/uL (0.4-5.4); Lymphocytes % (auto) 12.5 % (10.0-50.0); Mean Corpuscular Hemoglobin 31.5 pg (28.0-32.0); Mean Corpuscular Volume 92.7 fL (80.0-100.0); Monocytes # (auto) 0.2 10 ^3/uL (0-1.3); Neutrophils % (auto) 85.3 % (37.0-80.0); Platelet Count (auto) 237 10^3/uL (140-450); Red Blood Cells 4.25 10^6/uL (4.0-5.20); Red Cell Distribution Width 15.5 % (11.8-14.3); White Blood Cell 9.3 10^3/uL (4.4-10.8)
[2020-07-04 09:27] LABS: Albumin 3.1 g/dL (3.4-5.0); Anion Gap 6 (5-15); Blood Urea Nitrogen 15 mg/dL (7-18); Calcium 8.8 mg/dL (8.5-10.1); Carbon Dioxide 24 mmol/L (21-32); Chloride 108 mmol/L (98-107); GFR African American 95 mL/min; GFR Non-African American 79 mL/min; Glucose 124 mg/dL (74-106); Sodium 138 mmol/L (136-145)
[2020-07-04 09:35] LABS: Alanine Aminotransferase 23 U/L (13-56); Alkaline Phosphatase 65 U/L (45-117); Aspartate Aminotransferase 12 U/L (15-37); Bilirubin, Total 0.3 mg/dL (0.2-1.0); Total Protein 6.3 g/dL (6.4-8.2)
[2020-07-04] MEDS: ASCORBIC ACID 1,000 MG TAB PO SCH (10:00)
[2020-07-04] MEDS: ZINC SULFATE 220mg CAP or TAB PO SCH (10:00)
[2020-07-04] MEDS: CHOLECALCIFEROL (VITD3) 2,000 UNIT CAP/TAB PO SCH (10:00)
[2020-07-04] MEDS: ENOXAPARIN SOD 40 MG/0.4 ML SYRINGE SC SCH ×2 (10:00→22:00)
[2020-07-04] MEDS: DOXYCYCLINE 100MG/250ML 250 ML IV SCH ×2 (10:28→22:03)
[2020-07-04] MEDS: FAMOTIDINE 20 MG TAB PO SCH ×2 (10:28→22:03)
[2020-07-04] MEDS: METOPROLOL SUCCINATE XL 50 MG TAB PO SCH (10:29)
[2020-07-04] MEDS: SERTRALINE HCL 50 MG TAB PO SCH (10:29)
[2020-07-04] MEDS ORDERED: ADENOSINE 106 MG in GIVE UN-DILUTED 0 ML IV STA (13:28)
[2020-07-04 13:52] VITALS: BP 129/69
[2020-07-04 16:00] VITALS: BP 125/65
[2020-07-04 16:45] LABS: INR 2.01 (0.9-1.15)
[2020-07-04] MEDS ORDERED: WARFARIN SODIUM 1 MG TAB PO ONE (18:00)
[2020-07-04 22:00] VITALS: BP 108/63
[2020-07-04] MEDS ORDERED: PRAVASTATIN SODIUM 20 MG TAB PO SCH (22:00)
[2020-07-05] MEDS: ACETAMINOPHEN 325 MG TAB PO PRN (00:40)
[2020-07-05 05:00] VITALS: BP 131/78
[2020-07-05 06:27] LABS: Basophils # (auto) 0 10 ^3/uL (0-0.2); Basophils % (auto) 0.5 % (0.0-2.0); Eosinophils # (auto) 0.1 10 ^3/uL (0-0.8); Eosinophils % (auto) 1.6 % (0.0-7.0); Hematocrit 36.5 % (36.0-46.0); Hemoglobin 12.5 g/dL (12.2-16.2); Lymphocytes # (auto) 2.7 10 ^3/uL (0.4-5.4); Lymphocytes % (auto) 32.8 % (10.0-50.0); Mean Corpuscular Hemoglobin 31.7 pg (28.0-32.0); Mean Corpuscular Hgb Conc. 34.3 g/dL (32.0-36.0); Mean Corpuscular Volume 92.4 fL (80.0-100.0); Monocytes # (auto) 0.6 10 ^3/uL (0-1.3); Monocytes % (auto) 7.3 % (0.0-12.0); Neutrophils # (auto) 4.8 10 ^3/uL (1.6-8.6); Neutrophils % (auto) 57.8 % (37.0-80.0); Nucleated Red Blood Cells % 0.2 %; Platelet Count (auto) 220 10^3/uL (140-450); Red Blood Cells 3.95 10^6/uL (4.0-5.20); Red Cell Distribution Width 15.7 % (11.8-14.3); White Blood Cell 8.3 10^3/uL (4.4-10.8)
[2020-07-05 06:36] LABS: Albumin 2.9 g/dL (3.4-5.0); Calcium 8.2 mg/dL (8.5-10.1); Potassium 3.7 mmol/L (3.5-5.1)
[2020-07-05 06:37] LABS: INR 2.1 (0.9-1.15)
[2020-07-05] MEDS: buPROPion HCL 75 MG TAB PO SCH (06:38)
[2020-07-05 06:41] LABS: BUN/Creatinine Ratio 15.9; Bilirubin, Total 0.3 mg/dL (0.2-1.0); Total Protein 5.8 g/dL (6.4-8.2)
[2020-07-05 08:00] VITALS: BP 116/68
[2020-07-05] MEDS: ZINC SULFATE 220mg CAP or TAB PO SCH (09:01)
[2020-07-05] MEDS: ASCORBIC ACID 1,000 MG TAB PO SCH (09:26)
[2020-07-05] MEDS: CHOLECALCIFEROL (VITD3) 2,000 UNIT CAP/TAB PO SCH (09:26)
[2020-07-05] MEDS: ENOXAPARIN SOD 40 MG/0.4 ML SYRINGE SC SCH (09:27)
[2020-07-05] MEDS: FAMOTIDINE 20 MG TAB PO SCH (10:00)
[2020-07-05] MEDS: SERTRALINE HCL 50 MG TAB PO SCH (10:00)
[2020-07-05] MEDS: DOXYCYCLINE 100MG/250ML 250 ML IV SCH (10:00)
[2020-07-05] MEDS: METOPROLOL SUCCINATE XL 50 MG TAB PO SCH (10:46)
[2020-07-05 14:27] VITALS: BP 126/57
[2020-07-05 15:51] VITALS: BP 126/57
[2020-07-05] MEDS ORDERED: WARFARIN SODIUM 1 MG TAB PO ONE (17:00)
== END 2020-07-05 15:44 | disposition home or self-care (01) | DRG 194 ==
LOC: ER 16:52 → TELE 22:34 → TELE-CENTR 07-04 04:20
PROVIDERS: ADMIT Nurse Practitioner; ATTEND Family Medicine
DX: J18.9 Pneumonia, unspecified organism (principal); D68.51 Activated protein C resistance; D84.9 Immunodeficiency, unspecified; Z68.41 Body mass index [BMI] 40.0-44.9, adult; I20.0 Unstable angina; D68.9 Coagulation defect, unspecified; R07.89 Other chest pain; E66.01 Morbid (severe) obesity due to excess calories; Z20.822 Contact with and (suspected) exposure to COVID-19; R06.03 Acute respiratory distress; I10 Essential (primary) hypertension; Z82.49 Family history of ischemic heart disease and other diseases of the circulatory system; Z80.1 Family history of malignant neoplasm of trachea, bronchus and lung; Z81.8 Family history of other mental and behavioral disorders; Z82.5 Family history of asthma and other chronic lower respiratory diseases; Z86.73 Personal history of transient ischemic attack (TIA), and cerebral infarction without residual deficits; Z90.710 Acquired absence of both cervix and uterus; I25.2 Old myocardial infarction
CPT/HCPCS: 36415; 71045; 71250; 74176; 78452; 80053; 81001; 82728; 83605; 83735; 83880; 84443; 84484; 85025; 85379; 85610; 85730; 86141; 87040; 87426; 93005; 93017; 93306; 96365; 96366; 96375; G0378; J0153; J1100; J3490

== ENCOUNTER → 2020-07-27 | Outpatient (CLI) | payer BC | END | disposition home or self-care (01) | LOC: LAB 11:19 | PROVIDERS: ATTEND Internal Medicine | DX: Z00.00 Encounter for general adult medical examination without abnormal findings (principal) | CPT/HCPCS: 82274 ==

== ENCOUNTER 2022-12-25 16:23 | Emergency (ER) | payer BC, OTHER ==
[~2022-12-25] VITALS: Ht 170.2 cm; Wt 127.3 kg
[~2022-12-25 16:23] MED LIST changes: +WARF-111 PO; -WARF3TAB22 PO
[2022-12-25 17:32] LABS: Basophils # (auto) 0 10 ^3/uL (0-0.2); Basophils % (auto) 0.4 % (0.0-2.0); Eosinophils # (auto) 0 10 ^3/uL (0-0.8); Eosinophils % (auto) 0.3 % (0.0-7.0); Hematocrit 39.3 % (36.0-46.0); Hemoglobin 12.8 g/dL (12.2-16.2); Lymphocytes # (auto) 0.4 10 ^3/uL (0.4-5.4); Mean Corpuscular Hemoglobin 29.2 pg (28.0-32.0); Mean Corpuscular Hgb Conc. 32.7 g/dL (32.0-36.0); Mean Corpuscular Volume 89.5 fL (80.0-100.0); Monocytes # (auto) 0.6 10 ^3/uL (0-1.3); Monocytes % (auto) 7.9 % (0.0-12.0); Neutrophils # (auto) 6.3 10 ^3/uL (1.6-8.6); Neutrophils % (auto) 85.4 % (37.0-80.0); Red Blood Cells 4.39 10^6/uL (4.0-5.20); Red Cell Distribution Width 16.1 % (11.8-14.3); White Blood Cell 7.3 10^3/uL (4.4-10.8)
[2022-12-25 17:50] LABS: Albumin 3.8 g/dL (3.4-5.0); Calcium 8.8 mg/dL (8.5-10.1); Potassium 3.8 mmol/L (3.5-5.1)
[2022-12-25 17:59] LABS: BUN/Creatinine Ratio 9.3 (10.0-20.0); Bilirubin, Total 0.3 mg/dL (0.2-1.0); Total Protein 6.9 g/dL (6.4-8.2)
[2022-12-25 17:59] LABS: Urine Bacteria NONE SEEN /hpf (None Seen); Urine Blood Negative /uL (Negative); Urine Mucus FEW (None Seen); Urine WBC 2 /hpf (0 - 5)
[2022-12-25 19:51] LABS: INR 3.25 (0.9-1.15)
[2022-12-25] MEDS ORDERED: METH4PAK PO (20:38)
[2022-12-25] MEDS ORDERED: ALBU108A5 IN (20:38)
[2022-12-25] MEDS ORDERED: AMOX875T4 PO (20:38)
[2022-12-25 21:01] VITALS: BP 127/75; PULSE 83; RESP 18; TEMP 99.2; O2SAT 96
== END 2022-12-25 20:41 | disposition home or self-care (01) ==
LOC: ER 16:23
DX: J18.9 Pneumonia, unspecified organism (principal); R51.9 Headache, unspecified; R07.89 Other chest pain; F32.9 Major depressive disorder, single episode, unspecified; E78.5 Hyperlipidemia, unspecified; Z86.73 Personal history of transient ischemic attack (TIA), and cerebral infarction without residual deficits; Z90.89 Acquired absence of other organs; Z90.710 Acquired absence of both cervix and uterus; Z98.890 Other specified postprocedural states
CPT/HCPCS: 36415; 70450; 71045; 80053; 81001; 82962; 84484; 85025; 85379; 85610; 93005